=== PATIENT | male | born 1975 | race Caucasian/White ===

== ENCOUNTER 2016-07-14 11:54 | Day surgery (SDC) | payer OTHER ==
[2016-07-14] MEDS ORDERED: LIDOCAINE 1% 30 ML SDV ONE (12:52)
[2016-07-14] MEDS ORDERED: LIDO/EPI 1% **for epidural** 30 ML SDV ONE (12:52)
--- NOTE | 2016-07-14 14:36 | CPIP ---
[f rep st] INVASIVE CARDIAC PROCEDURE DATE OF PROCEDURE: 07/14/2016 PROCEDURE PERFORMED: [employer]onic Reveal implantable loop recorder. INDICATION FOR PROCEDURE: History of non prodromal syncope resulting in facial trauma. PROCEDURE: After informed consent was obtained, the patient was brought to the cardiac procedure ro om. The 5th intercostal space, 2 cm from midline, was identified and marked. The patient was prepp ed and draped in a sterile fashion. Using 1% lidocaine, the subcutaneous tissue was anesthetized. Once appropriate level of localized anesthesia was obtained, incision was made with Medtronic scalpe l device that is provided in the loop recorder kit. The incision was modified with a scalpel blade. The tool was used to make appropriate subcutaneous tissue tract under the skin. Device was deploy ed without complications. Hemostasis was achieved. Steri-Strips were applied. Dressing and Tegade rm were covered. Device was tested. The device was detected demonstrating good P-wave capture. Device model was a Reveal LINQ LNQ11, se rial number [id number]. PLAN: 1. The patient will be discharged home. 2. The patient has been given wound care instructions. 3. The patient will follow up in our office on Tuesday July 19, 2016, for device and wound check. /[id number]/[id number]
== END 2016-07-14 14:03 | disposition home or self-care (01) ==
LOC: FCATH 11:54
PROVIDERS: ATTEND Internal Medicine Cardiovascular Disease
PROC: 0JH60PZ Insertion of Cardiac Rhythm Related Device into Chest Subcutaneous Tissue and Fascia, Open Approach (ICD-10-PCS; principal; 2016-07-14)
DX: R55 Syncope and collapse (principal)
CPT/HCPCS: C1764

== ENCOUNTER → 2016-12-30 | Outpatient (CLI) | payer OTHER | LOC: SBRMNEURO 21:30 | PROVIDERS: ATTEND Psychiatry & Neurology Sleep Medicine | DX: G47.33 Obstructive sleep apnea (adult) (pediatric) (principal); G47.61 Periodic limb movement disorder ==